=== PATIENT | female | born 1960 | race Caucasian/White ===

== ENCOUNTER 2017-06-07 07:24 | Day surgery (SDC) | payer OTHER ==
[2017-06-07] MEDS ORDERED: NS 500 ML IV ONE (07:31)
[2017-06-07] MEDS ORDERED: MIDAZOLAM 2 MG/2 ML VIAL IVP ONE (07:31)
[2017-06-07] MEDS ORDERED: fentaNYL 100 MCG/2 ML INJ IVP ONE (07:31)
[2017-06-07] MEDS ORDERED: ATROPINE SULFATE 1 MG/10 ML SYR IVP ONE (07:31)
[2017-06-07] MEDS ORDERED: BENZOCAINE UNIT DOSE SPRAY HURRICAINE MM ONE (07:31)
--- NOTE | 2017-06-07 07:49 | CPEKG ---
Heart Rate: 90 RR Interval: 667 QRSD Interval: 88 QT Interval: 368 QTC Interval: 451 QRS [place]: 11 T Wave [place]: 138 EKG Severity - ABNORMAL ECG - EKG Impression: ATRIAL FIBRILLATION, V-RATE 65-114 EKG Impression: VENTRICULAR PREMATURE COMPLEX EKG Impression: NONSPECIFIC REPOL ABNORMALITY, DIFFUSE LEADS Electronically Signed By: Loly Arellano 07-Jun-2017 14:26:46
[2017-06-07 08:15] LABS: INR 1.38 (0.83-1.16); PROTIME(PATIENT) 17.1 SEC (12.0-15.0)
--- NOTE | 2017-06-07 09:05 | PDANEPAE ---
ANE Past Medical History - Pulmonary History Hx Sleep Apnea: No ANE Review of Systems Review of Systems: ANE Patient History - Allergies Allergies/Adverse Reactions: kiwi Allergy (Verified 06/07/17 07:31) latex Allergy (Verified 06/07/17 07:30) naproxen Allergy (Verified 06/07/17 07:30) - Home Medications Home Medications: Amlodipine Besylate 10 mg PO DAILY 06/07/17 [Last Taken 06/07/17 06:00] Eliquis 5 mg PO BID 06/07/17 [Last Taken 06/07/17 06:00] Hydrochlorothiazide 12.5 mg PO DAILY 06/07/17 [Last Taken 06/06/17 08:30] Metoprolol Tartrate 25 mg PO BID 06/07/17 [Last Taken 06/07/17 06:00] - Smoking Hx Smoking Status: Never smoked ANE Labs/Vital Signs - Labs Result Diagrams: 06/07/17 08:00 - Vital Signs Height: 180 cm Weight: 100.5 kg ANE Physical Exam - Airway Neck exam: FROM Mallampati Score: Class 2 Mouth exam: normal dental/mouth exam - Pulmonary Pulmonary: no respiratory distress - Cardiovascular Cardiovascular: irregularly irregular - ASA Status ASA Status: II ANE Anesthesia Plan Total IV Anesthesia: Yes
[2017-06-07] MEDS ORDERED: PROPOFOL/EMULSION 500 MG/50 ML BOTTLE IV ONE (09:06)
[2017-06-07] MEDS ORDERED: LIDOCAINE 2% 5 ML SDV ONE (09:07)
--- NOTE | 2017-06-07 09:17 | PDHPUP ---
History & Physical Update H&P update statement: This history and physical update is based on an assessment of the patient which was completed after admission or registration (within 24 hours), but prior to the surgery/procedure. H&P update: H&P reviewed & patient examined, no change in patient's condition since H&P completed
[2017-06-07] MEDS ORDERED: NALOXONE HCL 0.4 MG/ML INJ IVP PRN (09:36)
[2017-06-07] MEDS ORDERED: ALBUTEROL 3 ML DEYVIAL IH PRN (09:36)
--- NOTE | 2017-06-07 09:36 | POSTANESTH ---
Post Anesthetic Evaluation Cardiovascular Status: Normal, Stable Respiratory Status: Normal, Stable Level of Consciousness/Mental Status: Mildly Sleepy, Arousable Pain Control: Adequate, Prn Tx Ordered Nausea/Vomiting Control: Adequate, Prn Tx Ordered Complications Possibly Related to Anesthesia: None Noted
--- NOTE | 2017-06-07 09:58 | PDTEE1 ---
BROOKE Cardioversion Procedure Procedure: electrical cardioversion, transesophageal echo Indications: atrial fibrillation Consent: signed and in chart Anticoagulation: eliquis Procedural Details: Pads were placed in anterior-posterior position. BROOKE probe was advanced and standard images obtained. There is no evidence of left atrial or left atrial appendage thrombus. Synchronized cardioversion attempt #1: 200J Results: normal sinus rhythm Conclusions: successful BROOKE cardioversion
--- NOTE | 2017-06-07 10:20 | CPEKG ---
Heart Rate: 45 RR Interval: 1333 P-R Interval: 200 QRSD Interval: 86 QT Interval: 440 QTC Interval: 381 P [place]: 41 QRS [place]: 12 T Wave [place]: 150 EKG Severity - ABNORMAL ECG - EKG Impression: SINUS BRADYCARDIA EKG Impression: ATRIAL PREMATURE COMPLEX EKG Impression: NONSPECIFIC T ABNORMALITIES, LATERAL LEADS EKG Impression: COMPARED WITH 06/07/2017, NSR HAS REPLACED AF Electronically Signed By: Loly Arellano 07-Jun-2017 14:26:38
--- NOTE | 2017-06-07 15:29 | ECHO ---
[email or web address] [place] [id number] Main: [phone] Fax: Transesophageal Echocardiography Name: TUCKER FULLER MR#: [id number] Study Date: 06/07/2017 Study Time: 09:12 AM Date of : 1960 Age: 57 year(s) Height: ( ) Weight: ( ) BSA: Gender: Female Examination: BROOKE Indication: Atrial Fibrillation Image Quality: Contrast: Requested by: Catrachito Leahc Heart Rate: Rhythm: BP: 164 mmHg/103 mmHg Procedure Staff [employer] Mate: Cheryl Thompson Physician: Catrachito Leach Requesting Provider: BROOKE Exam Details Conclusions: Normal global systolic LV function. An agitated saline study was performed and was negative for intracardiac shunting. No thrombus in left appendage. Trivial to mild mitral regurgitation. Measurements: Chambers Valvular Assessment AV/MV Valvular Assessment TV/PV Normal Normal Normal Name Value Range Name Value Range Name Value Range Additional Measurements: Findings: Left Ventricle: Normal global systolic LV function. Left Atrium: An agitated saline study was performed and was negative for intracardiac shunting. Left Atrial Appendage: No thrombus in left appendage. Mitral Valve: Trivial to mild mitral regurgitation. Aortic Valve: Patient: TUCKER FULLER Study Date: 06/07/2017 Page 1 of 2 09:12 AM The aortic valve is tri-leaflet. l1n (No Signature Object) Patient: TUCKER FULLER Study Date: 06/07/2017 Page 2 of 2 09:12 AM [id number]
== END 2017-06-07 11:17 | disposition home or self-care (01) ==
LOC: FCATH 07:24
PROVIDERS: ATTEND Internal Medicine Interventional Cardiology
PROC: 5A2204Z Restoration of Cardiac Rhythm, Single (ICD-10-PCS; principal; 2017-06-07)
PROC: B245ZZ4 Ultrasonography of Left Heart, Transesophageal (ICD-10-PCS; principal; 2017-06-07)
DX: I48.91 Unspecified atrial fibrillation (principal); I10 Essential (primary) hypertension; E78.5 Hyperlipidemia, unspecified
CPT/HCPCS: J2704; J3010

== ENCOUNTER 2018-08-15 07:44 | Day surgery (SDC) | payer OTHER ==
[2018-08-15] MEDS ORDERED: fentaNYL 100 MCG/2 ML INJ IVP ONE (07:46)
[2018-08-15] MEDS ORDERED: BENZOCAINE UNIT DOSE SPRAY HURRICAINE MM ONE (07:46)
[2018-08-15] MEDS ORDERED: ATROPINE SULFATE 1 MG/10 ML SYR IVP ONE (07:46)
[2018-08-15] MEDS ORDERED: NS 500 ML IV ONE (07:46)
[2018-08-15] MEDS ORDERED: MIDAZOLAM 2 MG/2 ML VIAL IVP ONE (07:46)
[2018-08-15 08:35] LABS: INR 1.3 (0.83-1.16); PROTIME(PATIENT) 15.6 SEC (12.0-15.0)
--- NOTE | 2018-08-15 09:08 | CPEKG ---
Test Reason : OPEN Blood Pressure : / mmHG Vent. Rate : 094 BPM Atrial Rate : 168 BPM P-R Int : 082 ms QRS Dur : 165 ms QT Int : 459 ms P-R-T Axes : 000 -10 056 degrees QTc Int : 575 ms Atrial fibrillation Nonspecific intraventricular conduction delay Inferior infarct, old Probable anteroseptal infarct, old Lots of artifact Confirmed by Cullen Castro ([id number]) on 08/15/2018 9:08:43 AM Referred By: Catrachito Leach Confirmed By:Cullen Castro
--- NOTE | 2018-08-15 09:09 | PDANEPAE ---
ANE History of Present Illness Afib/flutter here for BROOKE/CV ANE Past Medical History - Cardiovascular History Hx Hypertension: Yes Hx Arrhythmias: Yes Hx Chest Pain: No Hx Coronary Artery / Peripheral Vascular Disease: No Hx CHF / Valvular Disease: No Hx Palpitations: Yes - Pulmonary History Hx COPD: No Hx Asthma/Reactive Airway Disease: No Hx Recent Upper Respiratory Infection: No Hx Oxygen in Use at Home: No Hx Sleep Apnea: No ANE Review of Systems Review of Systems: - Exercise capacity METS (RN): 4 METS ANE Patient History - Allergies Allergies/Adverse Reactions: kiwi Allergy (Verified 06/07/17 07:31) latex Allergy (Verified 06/07/17 07:30) naproxen Allergy (Verified 06/07/17 07:30) - Home Medications Home Medications: Amlodipine Besylate 10 mg PO DAILY 06/07/17 [Last Taken 08/15/18 06:30] Eliquis 5 mg PO BID 06/07/17 [Last Taken 08/15/18 06:30] Hydrochlorothiazide 12.5 mg PO DAILY 06/07/17 [Last Taken 06/06/17 08:30] Metoprolol Tartrate 12.5 mg PO BID 06/07/17 [Last Taken 08/15/18 06:30] Flecainide Acetate 08/15/18 [Last Taken 08/15/18 06:30] Losartan Potassium 08/15/18 [Last Taken 08/15/18 06:30] - NPO status NPO Status: no food or drink >8 hours - Anes Hx Anes Hx: no prior problems - Smoking Hx Smoking Status: Never smoked - Alcohol Use Alcohol Use: Rarely - Family Anes Hx Family Anes Hx: none ANE Labs/Vital Signs - Labs Result Diagrams: 08/15/18 08:08 - Vital Signs Vital Signs: reviewed preoperatively; see RN documention for details Height: 180.34 cm Weight: 99.79 kg ANE Physical Exam - Airway Neck exam: FROM Mallampati Score: Class 2 Mouth exam: normal dental/mouth exam Mouth image: 1 - chipped 2 - chipped - Pulmonary Pulmonary: no respiratory distress, clear to auscultation - Cardiovascular Cardiovascular: regular rate and rhythym, no murmur, rub, or gallop - ASA Status ASA Status: II ANE Anesthesia Plan Anesthesia Plan: GA with mask Total IV Anesthesia: Yes
[2018-08-15] MEDS ORDERED: PROPOFOL/EMULSION 500 MG/50 ML BOTTLE IV ONE (09:15)
--- NOTE | 2018-08-15 09:41 | POSTANESTH ---
Post Anesthetic Evaluation Cardiovascular Status: Normal, Stable, Similar to Pre-Op Cond Respiratory Status: Normal, Stable, Similar to Pre-op Cond., Requires Airway Assist Level of Consciousness/Mental Status: Moderately Sleepy Pain Control: Adequate, Prn Tx Ordered Nausea/Vomiting Control: Adequate, Prn Tx Ordered Complications Possibly Related to Anesthesia: None Noted
--- NOTE | 2018-08-15 09:47 | PDTEE1 ---
BROOKE Cardioversion Procedure Procedure: electrical cardioversion Indications: atrial fibrillation Consent: signed and in chart Anticoagulation: eliquis Procedural Details: Pads were placed in anterior-posterior position. BROOKE deferred in the setting of consistent anticoagulation. Synchronized cardioversion attempt #1: 200J Results: normal sinus rhythm Conclusions: successful cardioversion
--- NOTE | 2018-08-15 16:45 | CPEKG ---
Test Reason : OPEN Blood Pressure : / mmHG Vent. Rate : 046 BPM Atrial Rate : 046 BPM P-R Int : 218 ms QRS Dur : 098 ms QT Int : 501 ms P-R-T Axes : 018 003 021 degrees QTc Int : 439 ms Sinus bradycardia Atrial premature complex First degree AV block Non-specific change in ST segment in Confirmed by Cullen Castro ([id number]) on 08/15/2018 4:44:25 PM Referred By: Catrachito Leach Confirmed By:Cullen Castro
== END 2018-08-15 10:50 | disposition home or self-care (01) ==
LOC: FCATH 07:44
PROVIDERS: ATTEND Internal Medicine Interventional Cardiology
PROC: 5A2204Z Restoration of Cardiac Rhythm, Single (ICD-10-PCS; principal; 2018-08-15)
DX: I48.0 Paroxysmal atrial fibrillation (principal); E78.00 Pure hypercholesterolemia, unspecified; I10 Essential (primary) hypertension
CPT/HCPCS: J2704

== ENCOUNTER 2018-10-01 09:12 | Day surgery (SDC) | payer OTHER ==
[2018-10-01] MEDS ORDERED: NS 500 ML IV ONE (09:16)
[2018-10-01] MEDS ORDERED: ATROPINE SULFATE 1 MG/10 ML SYR IVP ONE (09:16)
[2018-10-01] MEDS ORDERED: fentaNYL 100 MCG/2 ML INJ IVP ONE (09:16)
[2018-10-01] MEDS ORDERED: MIDAZOLAM 2 MG/2 ML VIAL IVP ONE (09:16)
[2018-10-01 10:07] LABS: INR 1.16 (0.83-1.16); PROTIME(PATIENT) 14.3 SEC (12.0-15.0)
[2018-10-01] MEDS ORDERED: APIXABAN 5 MG TAB PO ONE (10:15)
[2018-10-01] MEDS ORDERED: FLECAINIDE ACETATE 100 MG TAB PO ONE (10:30)
[2018-10-01] MEDS ORDERED: METOPROLOL TARTRATE 25 MG TAB PO ONE (10:30)
[2018-10-01] MEDS ORDERED: LOSARTAN POTASSIUM 25 MG TAB PO ONE (10:30)
[2018-10-01 10:42] VITALS: BP 146/90
[2018-10-01] MEDS ORDERED: ATROPINE SULFATE 1 MG/10 ML SYR ONE (11:35)
--- NOTE | 2018-10-01 12:33 | PDGENHP ---
History & Physical Chief Complaint: symptomatic AF Relevant Physical Exam: [id number]. cta. ao3 Cardiorespiratory Assessment: for elective guanako cv
--- NOTE | 2018-10-01 12:41 | PDANEPAE ---
ANE History of Present Illness afib ANE Past Medical History - Cardiovascular History Hx Hypertension: Yes Hx Arrhythmias: Yes Hx Chest Pain: No Hx Coronary Artery / Peripheral Vascular Disease: No Hx CHF / Valvular Disease: No Hx Palpitations: Yes - Pulmonary History Hx COPD: No Hx Asthma/Reactive Airway Disease: No Hx Recent Upper Respiratory Infection: No Hx Oxygen in Use at Home: No Hx Sleep Apnea: No - Neurologic History Hx Cerebrovascular Accident: No Hx Seizures: No Hx Dementia: No - Endocrine History Hx Diabetes: No Hypothyroid: No Hyperthyroid: No Obesity: moderate - Renal History Hx Renal Disorders: No - Liver History Hx Hepatic Disorders: No ANE Review of Systems Review of Systems: - Exercise capacity Exercise capacity: >=4 METS ANE Patient History - Allergies Allergies/Adverse Reactions: kiwi Allergy (Verified 06/07/17 07:31) latex Allergy (Verified 06/07/17 07:30) naproxen Allergy (Verified 06/07/17 07:30) - Home Medications Home medications: home medication list seen and reviewed Home Medications: Amlodipine Besylate 10 mg PO DAILY 06/07/17 [Last Taken 09/30/18 09:00] Eliquis 5 mg PO BID 06/07/17 [Last Taken 09/30/18 21:00] Hydrochlorothiazide 12.5 mg PO DAILY 06/07/17 [Last Taken 09/30/18 09:00] Metoprolol Tartrate 12.5 mg PO BID 06/07/17 [Last Taken 09/30/18 21:00] Flecainide Acetate 08/15/18 [Last Taken 09/30/18 21:00] Losartan Potassium 08/15/18 [Last Taken 09/30/18 09:00] - NPO status NPO Status: no food or drink >8 hours - Anes Hx Anes Hx: no prior problems - Smoking Hx Smoking Status: Never smoked ANE Labs/Vital Signs - Labs Result Diagrams: 10/01/18 09:45 - Vital Signs Blood Pressure: 146/90 Heart Rate: 76 Height: 180.34 cm Weight: 97.522 kg ANE Physical Exam - Airway Mallampati Score: Class 2 Mouth exam: normal dental/mouth exam - Pulmonary Pulmonary: no respiratory distress - Cardiovascular Cardiovascular: irregularly irregular - ASA Status ASA Status: II ANE Anesthesia Plan Anesthesia Plan: GA with mask
[2018-10-01] MEDS ORDERED: PROPOFOL 200 MG/20 ML VIAL ONE (12:42)
[2018-10-01] MEDS ORDERED: LIDOCAINE 2% 2 ML INJ ONE (12:42)
[2018-10-01] MEDS ORDERED: fentaNYL 100 MCG/2 ML INJ IVP PRN (13:03)
[2018-10-01] MEDS ORDERED: ALBUTEROL 3 ML DEYVIAL IH PRN (13:03)
[2018-10-01] MEDS ORDERED: NALOXONE HCL 0.4 MG/ML INJ IVP PRN (13:03)
--- NOTE | 2018-10-01 13:03 | POSTANESTH ---
Post Anesthetic Evaluation Cardiovascular Status: Normal, Stable Respiratory Status: Normal, Stable Level of Consciousness/Mental Status: Can Participate in Eval Pain Control: Adequate, Prn Tx Ordered Nausea/Vomiting Control: Adequate, Prn Tx Ordered Complications Possibly Related to Anesthesia: None Noted
--- NOTE | 2018-10-01 13:08 | PDTEE1 ---
BROOKE Cardioversion Procedure Procedure: electrical cardioversion, transesophageal echo Indications: atrial fibrillation Consent: signed and in chart Anticoagulation: eliquis Procedural Details: Pads were placed in anterior-posterior position. BROOKE probe was advanced and standard images obtained. There is no evidence of left atrial or left atrial appendage thrombus. Synchronized cardioversion attempt #1: 200J Results: normal sinus rhythm Conclusions: successful BROOKE cardioversion Patient Problems: Problems Problem Status Onset Atrial fibrillation Acute
--- NOTE | 2018-10-01 13:54 | CPEKG ---
Test Reason : OPEN Blood Pressure : / mmHG Vent. Rate : 049 BPM Atrial Rate : 049 BPM P-R Int : 265 ms QRS Dur : 099 ms QT Int : 496 ms P-R-T Axes : 015 005 063 degrees QTc Int : 448 ms Sinus bradycardia Prolonged ND interval Confirmed by Galdino Green ([id number]) on 10/01/2018 1:54:22 PM Referred By: Galdino Green Confirmed By:Galdino Green
== END 2018-10-01 14:10 | disposition home or self-care (01) ==
LOC: FCATH 09:12
PROVIDERS: ATTEND Internal Medicine Cardiovascular Disease
DX: I48.1 Persistent atrial fibrillation (principal); I48.92 Unspecified atrial flutter; E78.5 Hyperlipidemia, unspecified; I10 Essential (primary) hypertension; Z79.01 Long term (current) use of anticoagulants
CPT/HCPCS: J0461; J2704